=== PATIENT | male | born 1955 | race Caucasian/White ===

== ENCOUNTER 2024-05-09 08:33 | Outpatient (CLI) | payer MEDICARE, OTHER ==
[2024-05-09] MEDS ORDERED: Iopamidol 300 61% 100 ML VIAL FS ONE (12:18)
== END 2024-05-09 08:34 | disposition home or self-care (01) ==
LOC: CSHCT 08:33
PROVIDERS: ATTEND Otolaryngology
DX: K13.70 Unspecified lesions of oral mucosa (principal); R91.8 Other nonspecific abnormal finding of lung field
CPT/HCPCS: 70491; 71260; 82565; Q9967

== ENCOUNTER 2024-05-22 09:38 | Outpatient (CLI) | payer MEDICARE, OTHER ==
[2024-05-22 10:46] LABS: Hematocrit 34.6 % (38.8-50.0); Hemoglobin 11.9 g/dL (13.5-17.5); Mean Corpuscular HGB CONC 34.4 g/dL (32.0-36.0); Mean Corpuscular Volume 98.9 fL (81.2-95.1); Mean Platelet Volume 9.6 fL (7.4-10.4); Platelet Count 221 10x3/uL (150-450); RBC Distribution Width 15.8 % (11.5-14.5)
[2024-05-22 11:07] LABS: Anion Gap 14 mmol/L (10-20); BUN (Urea Nitrogen) 23 mg/dL (8.4-25.7); Calc. Creatinine Clearance 0 mL/min (70-130); Calcium 10.1 mg/dL (7.8-10.44); Carbon Dioxide 25 mmol/L (23-31); Chloride 106 mmol/L (98-107); Estimated GFR 74; Glucose 108 mg/dL (80-115); Potassium 4.3 mmol/L (3.5-5.1); Sodium 141 mmol/L (136-145)
== END 2024-05-22 09:39 | disposition home or self-care (01) ==
LOC: CSHLAB 09:38
PROVIDERS: ATTEND Otolaryngology
DX: Z01.818 Encounter for other preprocedural examination (principal); C06.9 Malignant neoplasm of mouth, unspecified
CPT/HCPCS: 80048; 85027; 93005; 93010

== ENCOUNTER 2024-05-27 05:36 | Day surgery (SDC) | payer MEDICARE, OTHER ==
[2024-05-22 10:07] VITALS: BMI 26.4
[2024-05-27] MEDS ORDERED: EPINEPHrine 1 MG/ML VIAL ONE ×3 (06:17→09:17)
[2024-05-27] MEDS ORDERED: Lidocaine 1% (PF) 30 ML VIAL ONE (06:17)
[2024-05-27] MEDS ORDERED: Sevoflurane 250 ML INH ANEST BOTTLE ONE (06:28)
[2024-05-27] MEDS ORDERED: Dexmedetomidine 200 MCG/2 ML VIAL ONE (06:28)
[2024-05-27] MEDS ORDERED: Dexamethasone 20 MG/5 ML VIAL ONE (06:33)
[2024-05-27] MEDS ORDERED: Fentanyl 250 MCG/5 ML VIAL ONE (06:33)
[2024-05-27] MEDS ORDERED: Midazolam HCl 2 mg/2 ml Vial ONE (06:33)
[2024-05-27] MEDS ORDERED: Lidocaine 1% PF 5 ML VIAL ONE (06:33)
[2024-05-27] MEDS ORDERED: PROPOFOL 20 ML ONE ×2 (06:33→07:59)
[2024-05-27] MEDS ORDERED: Ondansetron PF 4 MG/2 ML Vial ONE ×2 (06:33→07:26)
[2024-05-27] MEDS ORDERED: Rocuronium Bromide 10 MG/ML (10ML VIAL) ONE (06:33)
[2024-05-27] MEDS ORDERED: Glycopyrrolate 0.2 MG/ML 5 ML SYRINGE ONE (06:34)
[2024-05-27] MEDS ORDERED: CEFAZOLIN 2 GM VIAL ONE (06:59)
[2024-05-27] MEDS ORDERED: Labetalol HCl 100 MG/20 ML VIAL ONE (07:30)
[2024-05-27] MEDS ORDERED: Bupivacaine PF 0.5% 30 ML VIAL ONE (08:19)
[2024-05-27] MEDS ORDERED: fentaNYL 50 mcg/mL 1 mL Vial ONE ×2 (10:06→11:53)
[2024-05-27] MEDS ORDERED: Hydrocodone-Acetamin 15 ML UDCUP ONE (12:32)
== END 2024-05-27 13:30 | disposition home or self-care (01) ==
LOC: CSHSDC 05:36
PROVIDERS: ATTEND Otolaryngology
PROC: 0CBM8ZX Excision of Pharynx, Via Natural or Artificial Opening Endoscopic, Diagnostic (ICD-10-PCS; principal; 2024-05-27)
PROC: 0CB70ZZ Excision of Tongue, Open Approach (ICD-10-PCS; 2024-05-27)
DX: C02.0 Malignant neoplasm of dorsal surface of tongue (principal); C02.1 Malignant neoplasm of border of tongue; C02.3 Malignant neoplasm of anterior two-thirds of tongue, part unspecified; I10 Essential (primary) hypertension; Z87.891 Personal history of nicotine dependence; Z79.899 Other long term (current) drug therapy
CPT/HCPCS: 31535; 41120; C1776; J0171; J0665; J1100; J2250; J2405; J2704; J3010 ×2; 88305; 88309; 88331; 88332; 88342; J2001

== ENCOUNTER 2024-06-03 19:57 | Emergency (ER) | payer MEDICARE, OTHER ==
[2024-06-03 21:29] LABS: #Basophils 0.04 10x3/uL (0.0-0.2); #Monocytes 1.78 10x3/uL (0.0-1.1); #Neutrophils 12.09 10x3/uL (1.5-8.4); %Basophils 0.2 % (0.0-2.0); %Eosinophils 0.6 % (0.0-6.0); %Lymphocytes 14.2 % (18.0-47.0); %Monocytes 10.7 % (0.0-10.0); Hematocrit 31.4 % (38.8-50.0); Hemoglobin 10.9 g/dL (13.5-17.5); Mean Corpuscular HGB CONC 34.7 g/dL (32.0-36.0); Mean Corpuscular Hemoglobin 34.4 pg (27.0-33.0); Mean Corpuscular Volume 99.1 fL (81.2-95.1); Mean Platelet Volume 9.5 fL (7.4-10.4); Platelet Count 312 10x3/uL (150-450); RBC Distribution Width 15.6 % (11.5-14.5); Red Blood Cell (RBC) Count 3.17 10x6/uL (4.32-5.72); White Blood Cell (WBC) Count 16.6 10x3/uL (3.5-10.5)
[2024-06-03] MEDS ORDERED: Tranexamic Acid 1,000 MG/10 ML VIAL ONE (21:46)
[2024-06-03 21:54] LABS: ALT (SGPT) 62 U/L (8-55); AST (SGOT) 30 U/L (5-34); Albumin 4.2 g/dL (3.4-4.8); Alkaline Phosphatase 79 U/L (40-110); Anion Gap 14 mmol/L (10-20); BUN (Urea Nitrogen) 30 mg/dL (8.4-25.7); Bilirubin, Total 0.4 mg/dL (0.2-1.2); Calc. Creatinine Clearance 0 mL/min (70-130); Calcium 10.1 mg/dL (7.8-10.44); Carbon Dioxide 23 mmol/L (23-31); Chloride 106 mmol/L (98-107); Estimated GFR 61; Globulin 3.7 g/dL (2.4-3.5); Glucose 96 mg/dL (80-115); Potassium 3.8 mmol/L (3.5-5.1); Protein, Total 7.9 g/dL (5.8-8.1); Sodium 139 mmol/L (136-145)
[2024-06-03] MEDS ORDERED: PROPOFOL 20 ML ONE (22:06)
[2024-06-03] MEDS ORDERED: SUGAMMADEX SODIUM 200 MG/2 ML VIAL ONE (22:06)
[2024-06-03] MEDS ORDERED: fentaNYL 50 mcg/mL 1 mL Vial ONE (22:06)
[2024-06-03] MEDS ORDERED: Lidocaine 1% PF 5 ML VIAL ONE (22:07)
[2024-06-03] MEDS ORDERED: Rocuronium Bromide 10 MG/ML (10ML VIAL) ONE (22:07)
[2024-06-03] MEDS ORDERED: Dexamethasone 4 mg/ml Vial ONE (22:07)
[2024-06-03] MEDS ORDERED: SUCCINYLCHOLINE/SOD CL,ISO/PF 200 MG/10 ML SYRINGE FS ONE (22:07)
[2024-06-03] MEDS ORDERED: Ondansetron PF 4 MG/2 ML Vial ONE (22:07)
[2024-06-03] MEDS ORDERED: Ondansetron ODT 4 MG TAB PO PRN (22:24)
[2024-06-03] MEDS ORDERED: Ondansetron PF 4 MG/2 ML Vial IVP PRN (22:24)
[2024-06-03] MEDS ORDERED: HYDROcodone/Acetaminophen 5/325 mg Tablet PO PRN (22:26)
[2024-06-03] MEDS ORDERED: Lidocaine Viscous Sol 2% 15 ml UD Cup SSP PRN (22:27)
[2024-06-03] MEDS ORDERED: Ibuprofen 800 MG TAB PO SCH (22:30)
[2024-06-03] MEDS ORDERED: Midazolam HCl 5 mg/5 ml Vial ONE (23:08)
[2024-06-03] MEDS ORDERED: Oxymetazoline HCl 0.05% ( 15 ML ) ONE (23:25)
[2024-06-03] MEDS ORDERED: Acetaminophen 325 MG TAB PO SCH (23:59)
[2024-06-04] MEDS ORDERED: Fentanyl 250 MCG/5 ML VIAL ONE (00:11)
[2024-06-04] MEDS ORDERED: Rocuronium Bromide 10 MG/ML (10ML VIAL) ONE (00:48)
[2024-06-04] MEDS ORDERED: Ibuprofen 200 MG TAB PO SCH (03:00)
== END 2024-06-03 23:16 | disposition admitted as inpatient to this hospital (09) ==
LOC: CSHERS 19:57
PROC: 0W337ZZ Control Bleeding in Oral Cavity and Throat, Via Natural or Artificial Opening (ICD-10-PCS; principal; 2024-06-03)
DX: K91.841 Postprocedural hemorrhage of a digestive system organ or structure following other procedure (principal); I10 Essential (primary) hypertension; E78.5 Hyperlipidemia, unspecified; Z90.49 Acquired absence of other specified parts of digestive tract; Z98.84 Bariatric surgery status
CPT/HCPCS: 42970; 80053; 85025; J1100; J2250; J2405; J2704; J3010; 96374

== ENCOUNTER 2024-06-24 14:44 | Outpatient (CLI) | payer MEDICARE, OTHER ==
[~2024-06-24 14:44] MED LIST: Magnevist 469MG/ML 20 ML VIAL ONE
== END 2024-06-24 14:45 | disposition home or self-care (01) ==
LOC: CSHMRI 14:44
PROVIDERS: ATTEND Radiology Radiation Oncology
DX: Z98.890 Other specified postprocedural states (principal); C02.3 Malignant neoplasm of anterior two-thirds of tongue, part unspecified
CPT/HCPCS: 70543; A9579